=== PATIENT | male | born 1980 | race Caucasian/White ===

== ENCOUNTER 2022-01-04 09:11 | Outpatient (CLI) | payer OTHER, SELFPAY ==
[2022-01-04 13:20] LABS: Chloride* 108 mmol/L (96-114)
[2022-01-04 13:21] LABS: Albumin* 4.7 g/dL (3.3-5.0); Sodium* 141 mmol/L (135-149)
[2022-01-04 13:22] LABS: Potassium* 4.4 mmol/L (3.6-5.1)
[2022-01-04 13:24] LABS: Alanine Aminotransferase* 26 U/L (4-50); Alkaline Phosphatase* 75 U/L (40-150); Aspartate Amino Transferase* 37 U/L (12-35); Bilirubin Total* 0.3 mg/dL (0.1-1.5); Blood Urea Nitrogen* 20 mg/dL (5-24); Carbon Dioxide* 26 mmol/L (20-32); Cholesterol* 219 mg/dL (90-199); Creatinine* 1.3 mg/dL (0.5-1.5); Estimated Glomerular Filt Rate 72 ml/min; Glucose* 103 mg/dL (60-115); Total Protein* 6.9 g/dL (6.0-8.3); Triglycerides* 95 mg/dL (40-149)
[2022-01-04 13:25] LABS: Calcium* 9.5 mg/dL (8.4-10.6); HDL Cholesterol* 47 mg/dL (>=40); LDL Cholesterol Calculated 153 mg/dL (<100)
== END 2022-01-04 09:12 | disposition home or self-care (01) ==
PROVIDERS: PCP Family Medicine; Visit Provider Family Medicine
DX: Z00.00 Encounter for general adult medical examination without abnormal findings (principal); E78.00 Pure hypercholesterolemia, unspecified; K90.49 Malabsorption due to intolerance, not elsewhere classified
CPT/HCPCS: 80053; 80061; 83516

== ENCOUNTER 2023-02-17 11:24 | Outpatient (CLI) | payer OTHER, SELFPAY | END 2023-02-17 11:25 | disposition home or self-care (01) | PROVIDERS: PCP Family Medicine; Visit Provider Family Medicine | DX: E78.00 Pure hypercholesterolemia, unspecified (principal); Z12.5 Encounter for screening for malignant neoplasm of prostate | CPT/HCPCS: 80053; 80061; 84153 ==

== ENCOUNTER 2023-12-04 13:14 | Outpatient (CLI) | payer OTHER, SELFPAY | END 2023-12-04 13:15 | disposition home or self-care (01) | LOC: LKVREF 13:15 | PROVIDERS: PCP Family Medicine; Visit Provider Family Medicine | DX: E78.00 Pure hypercholesterolemia, unspecified (principal) | CPT/HCPCS: 80053; 80061 ==

== ENCOUNTER 2024-01-01 10:13 | Outpatient (CLI) | payer OTHER, SELFPAY ==
--- NOTE | 2024-01-01 11:31 | W.ANESCHARGE ---
Anesthesia Charges Start Date/Time Anesthesia Start Date: 01/01/24 Anesthesia Start Time: 10:55 Stop Date/Time Anesthesia Stop Date: 01/01/24 Anesthesia Stop Time: 11:30
== END 2024-01-01 10:14 | disposition home or self-care (01) ==
LOC: OP CLINIC 10:13
PROVIDERS: PCP Family Medicine; Visit Provider Internal Medicine
DX: Z12.11 Encounter for screening for malignant neoplasm of colon (principal); R10.13 Epigastric pain
CPT/HCPCS: 00813; 43239; 45378; 88305; J2704

== ENCOUNTER 2024-12-24 00:33 | Emergency (ER) | payer OTHER, SELFPAY ==
--- OUTSIDE RECORDS SUMMARY | 2024-12-24 00:35 | XMS_ITS | Clinical Summary ---
Author Organization [facility] Address [address] [place] [id number] Care Team Providers Care Hat Block Maker Name Role Phone Raudel Hardy MD Primary Care Provider [phone] Allergies Active Allergy Reactions Criticality Noted Date Comments Sulfa (Sulfonamide Antibiotics) Rash 06/2022 Medications pantoprazole (PROTONIX) 20 mg tablet Take 20 mg by mouth once daily. 02/04/2022 Active rosuvastatin (CRESTOR) 10 mg tablet Take 10 mg by mouth once daily. 02/04/2022 Active Active Problems Problem Noted Date Diagnosed Date Periumbilical abdominal pain 03/20/2022 Social History Tobacco Use Types Packs/Day Years Used Date Smoking Tobacco: Never Smokeless Tobacco: Never Tobacco Cessation:Counseling Given: Not Answered Social Connections Answer Date Recorded Frequency of Communication with Friends and Fami ly Not on file 03/20/2022 Sex and Gender Information Value Date Recorded Sex Assigned at Not on file Legal Sex Male 1:08 PM CDT Gender Identity Not on file Sexual Orientation Not on file Obstetrics History Last Filed Vital Signs Vital Sign Reading Time Taken Comments Blood Pressure 142/74 03/20/2022 4:00 PM [employer] Pulse 64 03/20/2022 4:00 PM [employer] Temperature - - Respiratory Rate - - Oxygen Saturation 97% 03/20/2022 4:00 PM [employer] Inhaled Oxygen Concentration - - Weight 97.7 kg (215 lb 6.4 oz) 03/20/2022 4:00 P M [employer] Height - - Body Mass Index - - Plan of Treatment Health Maintenance Due Date Last Done Comments Tetanus booster 1993 Depression screening for age 12+ 1994 HIV for age 15-65 1997 BMI (ht and wt on same day) for age 18+ 2000 Hepatitis C screening for ag e 18-79 2000 Hepatitis B series for 19+ ( 1 of 3 - 19+ 3-dose series) 2001 HPV series for age 9-45 (1 - 3-dose SCDM series) 2009 Lipids for age 35-44 2017 COVID-19 vaccine series ( - 2023- season) 2024 Influenza Vaccine (#1) 2024 RSV vaccine for adults or (1 - 1-dose 75+ series) 2057 Pneumococcal series for age 6-49 Aged Out No longer eligible based on patient's age to complete this topic Insurance [facility] Care Teams Hat Block Maker Relationship Specialty Start Date End Date Raudel Hardy MD [address] [place] [address] PCP - General Family Practice 03/20/22
[2024-12-24 00:39] VITALS: BP 141/88; PULSE 60; RESP 18; TEMP 37.1; O2SAT 99; BMI 27.4
[2024-12-24] MEDS: LIDOCAINE 1%-EPI 1:100,000 2 ML INFILTRATI (01:18)
--- NOTE | 2024-12-24 01:31 | ED_ITS ---
HPI - Wound/Laceration General Date Seen: 12/24/24 Chief Complaint: Laceration/Wound Stated Complaint: Left index finger lac Time Seen by Provider: 12/24/24 00:50 Source: patient Mode of arrival: ambulatory Limitations: no limitations History of Present Illness HPI narrative: 44-year-old male who was using a utility knife when he slipped and cut the index finger of his left hand. Last tetanus was in 2020. Bleeding was controlled with direct pressure. He presents for evaluation for suturing. Normal extensor function of the finger. Related Data Previous Rx's ?Medication ?Instructions ?Recorded pantoprazole 20 mg tablet,delayed 20 mg PO QDAY #90 ta bs 11/16/24 release (Protonix) Allergies Allergy/AdvReac Type Severity Reaction Status Date / Time Sulfa (Sulfonamide Allergy Rash Verified 12/24/24 00:40 Antibiotics) Review of Systems Narrative: Review of systems is outlined above otherwise noted to be negative. [facility] Medical History (Updated 12/24/24 @ 01:31 by Ryan Acosta MD) GERD (gastroesophageal reflux disease) ?K21.9 - Gastro-esophageal reflux disease without esophagitis (ICD-10) Migraine ?G43.909 - Migraine, unspecified, not intractable, without status migrainosus (ICD-10) Hypercholesteremia ?E78.00 - Pure hypercholesterolemia, unspecified (ICD-10) Carpal tunnel syndrome ?G56.00 - Carpal tunnel syndrome, unspecified upper limb (ICD-10) Back pain ?M54.9 - Dorsalgia, unspecified (ICD-10) Social History (Updated 12/24/24 @ 01:31 by Ryan Acosta MD) Narrative: Smoking Status: Never smoker Second hand tobacco smoke exposure: No How often do you have a drink containing alcohol: never AUDIT-C Alcohol total score: 0 Non-prescribed substance use: denies use Exam Narrative: Exam Narrative: Objective: Vitals noted. Examination is limited to the left upper extremity. He has a 1.5 cm clean laceration over the dorsum of the left index finger. There is no extensor tendon involvement. Normal function. No foreign body. No sign of infection. Const: Vital Signs, click to edit/add: Vital Signs - 24 hr 12/24/24 00:39 Temperature 98.7 F Pulse Rate [Right Pulse Oximeter] 60 Respiratory Rate 18 Blood Pressure [Ri ght Upper Arm] 141/88 H Pulse Oximetry 99 Oxygen Delivery Me thod Room Air Course Course ED Course: Patient seen and examined. His hand is soaked and cleaned. We discussed options of Dermabond verses suturing and I think in the location suturing is preferred. He agrees. Verbal consent is obtained. The wound is prepped and draped in sterile fashion. Scrubbed with a Hibiclens solution. 1% lidocaine with epinephrine is still for local anesthesia. The wound is closed with three simple interrupted sutures of 5.0 Ethilon. Good wound edge approximation and hemostasis are achieved. The wound is dressed with bacitracin and a Band-Aid. He tolerated this well. Vital Signs Vital signs: Initial Vital Signs Temperature 98.7 F 12/24/24 00:39 Temperature Source Temporal Artery Scan 12/24/24 00:39 Pulse Rate 60 12/24/24 00:39 Respiratory Rate 18 12/24/24 00:39 Blood Pressure 141/88 H 12/24/24 00:39 Blood Pressure Mean 105 12/24/24 00:39 Blood Pressure Position Sitting 12/24/24 00:39 Pulse Oximetry 99 12/24/24 00:39 Oxygen Delivery Method Room Air 12/24/24 00:39 Vital Signs Temperature 98.7 F 12/24/24 00:39 Pulse Rate 60 12/24/24 00:39 Respiratory Rate 18 12/24/24 00:39 Blood Pressure 141/88 H 12/24/24 00:39 Pulse Oximetry 99 12/24/24 00:39 Oxygen Delivery Method Room Air 12/24/24 00:39 Temperature 98.7 F 12/24/24 00:39 Pulse Rate 60 12/24/24 00:39 Respiratory Rate 18 12/24/24 00:39 Blood Pressure 141/88 H 12/24/24 00:39 Pulse Oximetry 99 12/24/24 00:39 Oxygen Delivery Method Room Air 12/24/24 00:39 Medications Administered Medications: Generic Name Dose Route Start Last Admin Trade Name Freq PRN Reason Stop Dose Admin Lidocaine/Epinephrine 2 ml 12/24/24 01:29 12/24/24 01:18 Lidocaine 1%-Epi 1:100,000 INFILTRATI 12/24/24 01:30 2 ml ONCE ONE Administration Discharge Plan Discharge Clinical Impression: Finger laceration Patient Disposition: Home, Self-Care Condition: Improved Additional Instructions: Sutures out in 7-10 days. Watch for signs of infection. Keep wound clean, dry, and protected. Prescriptions: No Action pantoprazole [Protonix] 20 mg tablet,delayed release (DR/EC) 20 mg PO QDAY Qty: 90 0RF Follow Up/Referrals: Raudel Hardy MD [Primary Care Provider, Family Practice] Stand Alone Forms: Inv[employer]teMe,SL Info Instructions
[2024-12-24 01:36] VITALS: BP 141/88; PULSE 60; RESP 18; TEMP 37.1
== END 2024-12-24 01:39 | disposition home or self-care (01) ==
LOC: ED 01:36
PROVIDERS: Emergency Provider Family Medicine; PCP Family Medicine
DX: S61.211A Laceration without foreign body of left index finger without damage to nail, initial encounter (principal); W26.0XXA Contact with knife, initial encounter
CPT/HCPCS: 12001; 99281; 99283

== ENCOUNTER 2025-01-10 08:20 | Outpatient (CLI) | payer OTHER, SELFPAY | END 2025-01-10 08:21 | disposition home or self-care (01) | LOC: NFLDREF 01-11 18:05 | PROVIDERS: PCP Family Medicine; Referring Provider Family Medicine; Visit Provider Family Medicine | DX: Z00.00 Encounter for general adult medical examination without abnormal findings (principal); Z13.1 Encounter for screening for diabetes mellitus; Z13.6 Encounter for screening for cardiovascular disorders | CPT/HCPCS: 80053; 80061; 83695; 84153; 84270; 84402; 84403; 86703; 86803 ==